=== PATIENT | female | born 1945 | race American Indian/Alaskan Native ===

== ENCOUNTER 2018-10-12 16:07 | Emergency (ER) | payer MEDICARE ==
[2018-10-12 17:41] LABS: Basophils % (Auto) 0.6 % (0.0-1.8); Eosinophils # (Auto) 0.1 K/mm3 (0.0-0.4); Eosinophils % (Auto) 1.2 % (0.0-4.3); Hematocrit 39.1 % (30.3-42.9); Hemoglobin 13.2 gm/dl (10.1-14.3); Lymphocytes % (Auto) 47.9 % (13.4-35.0); Mean Corpuscular HGB Conc 34 % (30-34); Mean Corpuscular Volume 89 fl (79-97); Monocytes # (Auto) 0.7 K/mm3 (0.0-0.8); Platelet Count 311 K/mm3 (140-440); Red Blood Count 4.41 M/mm3 (3.65-5.03); Red Cell Distribution Width 13.9 % (13.2-15.2)
[2018-10-12 17:49] LABS: INR 1.18 (0.87-1.13)
[2018-10-12 18:03] LABS: Alanine Aminotransferase 16 units/L (7-56); Albumin 4.5 g/dL (3.9-5); BUN/Creatinine Ratio 15; Blood Urea Nitrogen 18 mg/dL (7-17); Calcium 9.6 mg/dL (8.4-10.2); Hemolysis Index 14
--- NOTE | 2018-10-12 20:01 | Cat Scan Report ---
FINAL REPORT PROCEDURE: CT HEAD/BRAIN WO CON TECHNIQUE: Computerized tomography of the head was performed without contrast material. HISTORY: dizziness/blurred vision COMPARISON: Prior CT scan of the brain 10/01/2018 FINDINGS: Brain: There is no evidence of intracranial hemorrhage. No parenchymal hemorrhage is seen. No mass lesions or mass effect is identified. No abnormal extra-axial fluid collections or masses are seen. Nonspecific mineralization of the basal ganglia are visualized. Ventricles: The ventricles, sulcal pattern and fissures are minimally prominent consistent with atrop hy. Bones: No evidence of acute fracture. Paranasal sinuses: Visualized portions are clear. Mastoid air cells: clear IMPRESSION: Minimal atrophy. No acute abnormalities are identified. If symptoms persist or worsen consider follow -up CT scan or MRI for further evaluation.
--- NOTE | 2018-10-12 21:47 | Emergency Department Report ---
ED Dizziness HPI - General Chief Complaint: Dizziness Stated Complaint: DIZZY Time Seen by Provider: 10/12/18 21:45 Source: patient Mode of arrival: Ambulatory Limitations: No Limitations - History of Present Illness Initial Comments: Patient is 73 years old female with history of hypertension, recent pulmonary embolism on Elliquis. Patient presented to the ER complaining of headache, dizziness sinus pressure and congestion and sore throat for the last 2 days. Patient denied any weakness, numbness or tingling sensation. No bowel or bladder incontinence. Patient denied any fever or neck pain. MD Complaint: dizziness Timing: sudden onset History of Same: No - Related Data Home Medications Medication Instructions Recorded Confirmed Last Taken Latanoprost 0.005% 1 drop OP QPM 05/18/13 08/24/18 08/24/18 Brimonidine/Timolol 0.2-0.5% 1 drops OP Q12H 08/24/18 08/24/18 08/24/18 [Combigan 0.2-0.5%] Dorzolamide 2% (Nf) [Trusopt] 1 drops OU TID 08/24/18 08/24/18 08/23/18 Previous Rx's Medication Instructions Recorded Last Taken Type ALBUTEROL NEB's [Proventil 0.083% 2.5 mg IH Q4HRT PRN nebu 08/27/18 Unknown Rx NEBS] Apixaban [Eliquis] 10 mg PO Q12HR #60 tablet 08/27/18 Unknown Rx Brimonidine/Timolol 0.2-0.5% 1 drops OU Q12HR bottle 08/27/18 Unknown Rx [Combigan 0.2-0.5%] Dorzolamide 2% (Nf) [Trusopt 1 drops OU Q12HR 08/27/18 Unknown Rx Levothyroxine [Synthroid] 100 mcg PO 0600 #30 tablet 08/27/18 Unknown Rx Metoprolol [Lopressor TAB] 50 mg PO BID #60 tablet 08/27/18 Unknown Rx Triamter/Hctz 37.5-25 mg 1 tab PO QDAY #30 tablet 08/27/18 Unknown Rx [Maxzide-25] guaiFENesin [Robitussin] 200 mg PO Q4H PRN oral.liqd 08/27/18 Unknown Rx Butalb/Acetaminophen/Caffeine 1 cap PO Q6HR PRN #10 cap 10/01/18 Unknown Rx [Fioricet 50-300-40 mg CAP] Allergies Allergy/AdvReac Type Severity Reaction Status Date / Time No Known Allergies Allergy Verified 10/01/18 10:59 ED Review of Systems ROS: Stated complaint: DIZZY Other details as noted in HPI Comment: All other systems reviewed and negative Constitutional: denies: chills, fever ENT: congestion Respiratory: denies: cough, shortness of breath, SOB with exertion, wheezing Cardiovascular: denies: chest pain, palpitations, dyspnea on exertion Gastrointestinal: denies: abdominal pain, nausea, vomiting, diarrhea, constipation, hematemesis, melena, hematochezia Neurological: vertigo. denies: headache, weakness, numbness, paresthesias, confusion, abnormal gait ED Past Medical Hx - Past Medical History Hx Hypertension: Yes Hx Pulmonary Embolism: Yes Hx GERD: Yes Hx Sickle Cell Disease: Yes (TRAIT) Hx Headaches / Migraines: Yes (MIGRAINES, DR. YUMIKO PEÑA- PCP) Additional medical history: hypothyroid. 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2-0.5% 1 drops OU Q12HR bottle 08/27/18 Unknown Rx [Combigan 0.2-0.5%] Dorzolamide 2% (Nf) [Trusopt 1 drops OU Q12HR 08/27/18 Unknown Rx Levothyroxine [Synthroid] 100 mcg PO 0600 #30 tablet 08/27/18 Unknown Rx Metoprolol [Lopressor TAB] 50 mg PO BID #60 tablet 08/27/18 Unknown Rx Triamter/Hctz 37.5-25 mg 1 tab PO QDAY #30 tablet 08/27/18 Unknown Rx [Maxzide-25] guaiFENesin [Robitussin] 200 mg PO Q4H PRN oral.liqd 08/27/18 Unknown Rx Butalb/Acetaminophen/Caffeine 1 cap PO Q6HR PRN #10 cap 10/01/18 Unknown Rx [Fioricet 50-300-40 mg CAP] ED Physical Exam - General Limitations: No Limitations General appearance: alert, in no apparent distress - Head Head exam: Present: atraumatic, normocephalic, normal inspection - Eye Eye exam: Present: normal appearance, PERRL - ENT ENT exam: Present: normal orophraynx, mucous membranes moist - Neck Neck exam: Present: normal inspection, full ROM. Absent: tenderness, meningismus, lymphadenopathy, thyromegaly - Respiratory Respiratory exam: Present: normal lung sounds bilaterally. Absent: respiratory distress, wheezes, rales, rhonchi, stridor, chest wall tenderness, accessory muscle use, decreased breath sounds, prolonged expiratory - Cardiovascular Cardiovascular Exam: Present: regular rate, normal rhythm, normal heart sounds - GI/Abdominal GI/Abdominal exam: Present: soft, normal bowel sounds. Absent: distended, tenderness, guarding, rebound, rigid, organomegaly, mass, bruit, pulsatile mass, hernia - Extremities Exam Extremities exam: Present: normal inspection, full ROM, normal capillary refill. Absent: pedal edema, calf tenderness - Back Exam Back exam: Present: normal inspection, full ROM. Absent: tenderness, CVA tenderness (R), CVA tenderness (L), muscle spasm, paraspinal tenderness, vertebral tenderness - Neurological Exam Neurological exam: Present: alert, oriented X3, CN II-XII intact, normal gait, reflexes normal - Psychiatric Psychiatric exam: Present: normal mood - Skin Skin exam: Present: warm, intact, normal color ED Course Vital Signs 10/12/18 22:31 Pulse Rate 90 Respiratory 15 Rate Blood Pressure 167/80 [Left] O2 Sat by Pulse 97 Oximetry ED Medical Decision Making - Lab Data Result diagrams: 10/12/18 17:12 10/12/18 17:12 - EKG Data -: EKG Interpreted by Sc EKG shows normal: sinus rhythm Rate: normal - EKG Data Interpretation: no acute changes - Radiology Data Radiology results: report reviewed Referring Physician: MAXIMUS PINA Patient Name: MAGO SINGH Date of : 1945 Sex: Female Report Date: 2018-10-12 Report Status: Finalized Findings [facility] [address] [place] [address] Cat Scan Report Signed Patient: MAGO SINGH MR#: [id number] : 1945 Acct:[id number] Age/Sex: 73 / F ADM Date: 10/12/18 Loc: ED Attending Dr: Ordering Physician: MAXIMUS PINA Date of Service: 10/12/18 Procedure(s): CT head/brain wo con Accession Number(s): [id number] cc: MAXIMUS PINA FINAL REPORT PROCEDURE: CT HEAD/BRAIN WO CON TECHNIQUE: Computerized tomography of the head was performed without contrast ma terial. HISTORY: dizziness/blurred vision COMPARISON: Prior CT scan of the brain 10/01/2018 FINDINGS: Brain: There is no evidence of intracranial hemorrhage. No parenchymal hemorrhage is seen. No mass lesions or mass effect is identified. No abnormal extra-axial fluid collections or masses are seen. Nonspecific mineralization of the basal ganglia are visualized. Ventricles: The ventricles, sulcal pattern and fissures are minimally prominent consistent with atrophy. Bones: No evidence of acute fracture. Paranasal sinuses: Visualized portions are clear. Mastoid air cells: clear IMPRESSION: Minimal atrophy. No acute abnormalities are identified. If symptoms persist or worsen consider follow-up CT scan or MRI for further evaluation. Transcribed By: CHRISTINA Dictated By: ANIBAL EDGAR MD Electronically Authenticated By: ANIBAL EDGAR MD Signed Date/Time: 10/12/182000 DD/ 99 TD/TT: 10/12/181999 - Medical Decision Making Patient is 73 years old female with history of hypertension, recent pulmonary embolism on Elliquis. Patient presented to the ER complaining of headache, dizziness sinus pressure and congestion and sore throat for the last 2 days. Patient denied any weakness, numbness or tingling sensation. No bowel or bladder incontinence. Patient denied any fever or neck pain. Patient evaluated by me multiple times. Patient vertigo completely resolved after 1 dose of meclizine 25 mg. Patient stated that she rated side effect of Elliquis and that it can cause vertigo. I advised the patient to continue her Elliquis until she see her primary care physician to either continue the medication or replace it with another anticoagulation medicine. Patient will be discharged home in stable clinical condition. Critical care attestation.: If time is entered above; I have spent that time in minutes in the direct care of this critically ill patient, excluding procedure time. ED Disposition Clinical Impression: Dizziness, Vertigo Disposition: DC-01 TO HOME OR SELFCARE Is pt being admited?: No Condition: Stable Instructions: Vertigo (ED) Referrals: SRINI GARCIA MD [Primary Care Provider] - 3-5 Days
[2018-10-12] MEDS ORDERED: DECADRON IV ONE (21:51)
[2018-10-12] MEDS ORDERED: ZOFRAN IV ONE (21:51)
[2018-10-12] MEDS ORDERED: MORPHINE IV ONE (21:51)
[2018-10-12 22:04] LABS: Bilirubin,Urine NEG (Negative); Blood,Urine NEG (Negative); Color,Urine Yellow (Yellow); Protein,Urine <15 mg/dL mg/dL (Negative); RBC,Urine < 1.0 /HPF (0.0-6.0); Urobilinogen,Urine < 2.0 mg/dL (<2.0); WBC,Urine < 1.0 /HPF (0.0-6.0)
[2018-10-12] MEDS ORDERED: ANTIVERT PO ONE (22:05)
[2018-10-13 00:49] VITALS: BP 139/67
== END 2018-10-13 00:49 | disposition home or self-care (01) ==
LOC: ED 16:07
DX: R42 Dizziness and giddiness (principal); J02.9 Acute pharyngitis, unspecified; I10 Essential (primary) hypertension; K21.9 Gastro-esophageal reflux disease without esophagitis; G43.909 Migraine, unspecified, not intractable, without status migrainosus; D57.3 Sickle-cell trait; E03.9 Hypothyroidism, unspecified; Z79.899 Other long term (current) drug therapy
CPT/HCPCS: 36415; 70450; 80053; 81001; 84484; 85025; 85610; 85730; 93005; 93010